=== PATIENT | male | born 1960 | race Caucasian/White ===

== ENCOUNTER 2020-03-31 08:28 | Emergency (ER) | payer MEDICARE, SELFPAY ==
--- NOTE | ~2020-03-31 | XR_ITS ---
XR shoulder LT min 2V DATE: 03/31/2020 09:00 INDICATION: Fall one month ago. Left shoulder pain. TECHNIQUE: 4 views COMPARISON: None FINDINGS: No fracture or dislocation, periosteal reaction or bone destruction or abnormal soft tissue calcification. IMPRESSION: No significant abnormality Reviewed, dictated and finalized at location A. IMPRESSION: No significant abnormality
[2020-03-31 08:34] VITALS: BP 131/95; PULSE 88; RESP 18; TEMP 36.9; O2SAT 97
--- NOTE | 2020-03-31 08:50 | ECG_ITS ---
Measurements Intervals [place] Rate: 80 P: 63 RI: 167 QRS: 48 QRSD: 84 T: 42 QT: 288 QTc: 332 Interpretive Statements SINUS RHYTHM EARLY PRECORDIAL R/S TRANSITION BASELINE ARTIFACT- I, II, III, AVF BORDERLINE ECG Electronically Signed On 03-31-2020 12:09:31 CDT by Clark East D.O.
--- NOTE | 2020-03-31 08:51 | ED.GENADULT ---
HPI - General Adult General Chief complaint: Extremity Injury, Upper Stated complaint: left shoulder pain, pain in both legs Time Seen by Provider: 03/31/20 08:35 Source: RN notes reviewed History of Present Illness HPI narrative: Patient presents emergency department from home for left shoulder pain. Patient states symptoms began approximately 1 month ago. [place] early [place] landing on his left shoulder. He states since that time is had pain which is worse with movement he states that when he is driving he has a hard time turning secondary to that movement of his shoulder. States he was seen by his PCP several days ago for the pain and was informed that may be another month or 2 before he can get an MRI. Patient states that the pain is continued to worsen. Patient does have chronic pain in his legs for which she takes [place]. He states he is had increasing pain in his legs for the past 3 days. He denies having any fevers or chills chest pain shortness of breath numbness or tingling in the extremities or any other symptoms. Related Data Allergies Allergy/AdvReac Type Severity Reaction Status Date / Time No Known Allergies Allergy Verified 03/31/20 08:37 Review of Systems Review of Systems: Narrative: Gen.: Denies fevers or chills ENT: Denies congestion Respiratory: Denies shortness of breath or cough CV: Denies chest pain or palpitations GI: Denies abdominal pain nausea, emesis or diarrhea Musculoskeletal: See HPI Neuro: Denies numbness, tingling, weakness or focal weakness Skin: Denies rash Except as documented, all other systems reviewed and negative [facility] Past Medical History Medical History (Updated 03/31/20 @ 10:49 by Lv Rebolledo DO) GERD (gastroesophageal reflux disease) Pancreatitis Social History Social History (Updated 03/31/20 @ 08:53 by Lv Rebolledo DO) Smoking status: Never smoker Gender identity (if verbalized by the patient): Male Exam Narrative: Exam Narrative: APPEARANCE: No acute distress, nontoxic, resting in bed EYES: EOMI HEENT: Normocephalic, atraumatic, OMM RESPIRATORY: No respiratory distress Clear to auscultation bilaterally with no rhonchi wheezing or rales. CARDIOVASCULAR: Regular rate and rhythm without murmurs rubs or gallops. ABDOMINAL: Soft, nontender, nondistended, no rebound or guarding MUSCULOSKELETAl: Moves all extremities. No clubbing, cyanosis or edema. The left shoulder is tender palpation over the anterior superior aspect, pain with flexion abduction greater than 90 degrees, no tenderness left elbow or wrist, radial pulse 2+, neurovascular intact no tenderness of the bilateral hips knees or ankles with full range of motion of all NEURO: Awake and alert. Following commands, speech normal, no focal deficits SKIN:: Warm, dry. No rashes lesions or abrasions PSYCHIATRIC: Normal affect/mood, Course Course Emergency Course: Discussed with patient results of workup and diagnosis. Discussed need for follow-up with primary care, proper use of medication, and reasons to return to the emergency department. Patient understands and agrees to current treatment plan Vital Signs Vital signs: Vital Signs Temperature 98.5 F 03/31/20 08:34 Pulse Rate 88 03/31/20 08:34 Respiratory Rate 18 03/31/20 08:34 Blood Pressure 131/95 H 03/31/20 08:34 Pulse Oximetry 97 03/31/20 08:34 Temperature 98.5 F 03/31/20 08:34 Pulse Rate 88 03/31/20 08:34 Respiratory Rate 18 03/31/20 08:34 Blood Pressure 131/95 H 03/31/20 08:34 Pulse Oximetry 97 03/31/20 08:34 Medical Decision Making Vital Signs Vital Signs: Vital Signs Temperature 98.5 F 03/31/20 08:34 Pulse Rate 88 03/31/20 08:34 Respiratory Rate 18 03/31/20 08:34 Blood Pressure 131/95 H 03/31/20 08:34 Pulse Oximetry 97 03/31/20 08:34 Temperature 98.5 F 03/31/20 08:34 Pulse Rate 88 03/31/20 08:34 Respiratory Rat
[2020-03-31] MEDS: IBUPROFEN 600 MG TABLET PO (09:27)
[2020-03-31 09:51] LABS: Basophils Absolute Auto 0.1 K/mm3 (0.0-0.1); Basophils Percent Auto 0.4 % (0.2-1.2); Eosinophils Percent Auto 0.3 % (0-4.4); Hematocrit 47.5 % (42.0-52.0); Hemoglobin 16.5 g/dL (14.0-18.0); Immature Granulocyte Absolute 0.04 K/mm3 (0.00-0.031); Immature Granulocyte Percent A 0.3 % (0-0.5); Lymphocytes Absolute Auto 2.25 K/mm3 (0.9-3.2); Lymphocytes Percent Auto 17.5 % (18.3-44.2); Mean Corpuscular HGB Conc 34.7 g/dl (32-36); Mean Corpuscular Hemoglobin 30.4 pg (26-34); Mean Corpuscular Volume 87.6 fl (80-100); Mean Platelet Volume 8.7 fl (7.4-10.4); Monocytes Absolute Auto 1.2 K/mm3 (0.1-0.6); Monocytes Percent Auto 9.3 % (2.6-8.5); Neutrophils Absolute Auto 9.3 K/mm3 (1.3-6.7); Neutrophils Percent Auto 72.2 % (45.5-73.1); Platelet Count Result 173 k/mm3 (150-375); Red Blood Count 5.42 M/mm3 (4.6-6.20); Red Cell Distribution Width 13.2 % (11.5-14.5); White Blood Count 12.8 K/mm3 (4.5-10.0)
[2020-03-31 10:00] VITALS: BP 141/75; PULSE 86; RESP 16; TEMP 36.4; O2SAT 99
[2020-03-31 10:09] LABS: Alanine Aminotransferase 26 U/L (4-50); Albumin Level 4.6 g/dL (3.5-5.1); Alkaline Phosphatase 67 U/L (38-126); Aspartate Amino Transferase 25 U/L (17-59); Bilirubin,Total 1.4 mg/dL (0.2-1.3); Blood Urea Nitrogen 17 mg/dL (9-20); Calcium 9.2 mg/dL (8.4-10.2); Carbon Dioxide 26 mmol/L (22-30); Chloride 98 mmol/L (98-107); Creatine Kinase 86 U/L (55-170); Estimated CRCL calculation 70 ml/min; Estimated Glomerular Filt Rate > 60; Glucose 129 mg/dL (75-110); Potassium 4.2 mmol/L (3.4-5.0); Sodium 134 mmol/L (137-145)
[2020-03-31 11:24] VITALS: BP 138/60; PULSE 82; RESP 18; O2SAT 100
== END 2020-03-31 11:26 | disposition home or self-care (01) ==
PROVIDERS: Emergency Provider Emergency Medicine
DX: M25.512 Pain in left shoulder (principal); K21.9 Gastro-esophageal reflux disease without esophagitis
CPT/HCPCS: 36415; 73030; 80053; 82550; 85025; 93005; 99283; A9270